=== PATIENT | female | born 1935 | race Caucasian/White ===

== ENCOUNTER 2023-05-09 17:05 | Emergency (ER) | payer BC, MEDICAID ==
[~2023-05-09] VITALS: Ht 157.5 cm; Wt 81.6 kg
[2023-05-09] MEDS ORDERED: ACET325C7 PO (17:27)
[2023-05-09] MEDS ORDERED: TELM40TA2 PO (17:27)
[2023-05-09] MEDS ORDERED: SIMV-46 PO (17:27)
[2023-05-09] MEDS: IV NORMAL SALINE 1000 ML BAG IV ONE (17:30)
[2023-05-09 18:00] LABS: BASOPHILS # (AUTO) 0.1 K/UL (0.0-0.2); BASOPHILS % (AUTO) 0.6 % (0.0-2.0); EOSINOPHILS # (AUTO) 0.1 K/uL (0.0-0.7); EOSINOPHILS % (AUTO) 0.7 % (0.0-7.0); HEMATOCRIT 39.4 % (31.2-41.9); LYMPHOCYTES # (AUTO) 1.3 K/uL (0.8-4.8); LYMPHOCYTES % (AUTO) 13.4 % (20.5-51.5); MEAN CORPUSCULAR HEMOGLOBIN 27.8 uug (24.7-32.8); MEAN CORPUSCULAR HGB CONC 33 g/dL (32.3-35.6); MEAN CORPUSCULAR VOLUME 84.1 fL (75.5-95.3); MONOCYTES # (AUTO) 0.6 K/uL (0.1-1.30); MONOCYTES % (AUTO) 6.3 % (0.0-11.0); NEUTROPHILS # (AUTO) 7.8 K/uL (1.8-8.9); PLATELET COUNT (AUTO) 254 K/uL (179-408); RED BLOOD CELL COUNT(AUTO) 4.69 MIL/uL (3.63-4.92); RED CELL DISTRIBUTION WIDTH 14.7 % (12.3-17.7); WHITE BLOOD COUNT (AUTO) 9.9 K/uL (3.8-11.8)
[2023-05-09 18:15] LABS: CALCIUM 9.3 mg/dL (8.5-10.1); CARBON DIOXIDE 24 mmol/L (21-32); CHLORIDE 106 mmol/L (98-107); CREATININE 0.8 mg/dL (0.6-1.3); GLUCOSE 134 mg/dL (74-106); POTASSIUM 3.9 mmol/L (3.5-5.1); SODIUM SERUM 141 mmol/L (136-145); UREA NITROGEN, BLOOD 13 mg/dL (7-18)
[2023-05-09 18:27] LABS: DIFFERENTIAL COMMENT 1
[2023-05-09 18:35] LABS: ALANINE AMINOTRANSFERASE 24 U/L (14-59); ALBUMIN 2.8 g/dL (3.4-5.0); ALKALINE PHOSPHATASE 48 U/L (50-136); ASPARTATE AMINOTRANSFERASE 25 U/L (15-37); BILIRUBIN,DIRECT 0.1 mg/dL (0.0-0.2); BILIRUBIN,TOTAL 0.3 mg/dL (0.2-1.0); NT-PRO BNP 429 pg/mL (0-125); TOTAL PROTEIN, SERUM 6.3 g/dL (6.4-8.2)
[2023-05-09] MEDS ORDERED: ONDANSETRON 4 MG/2 ML VIAL ONE ×2 (18:35→20:21)
[2023-05-09] MEDS: PANTOPRAZOLE SODIUM 40 MG VIAL IV SCH (19:12)
[2023-05-09 19:14] LABS: *BILIRUBIN,URIN NEGATIVE (NEGATIVE); *BLOOD, URINE 1+ (NEGATIVE); *CLARITY,URINE CLEAR (CLEAR); *COLOR,URINE YELLOW (YELLOW); *KETONES,URINE TRACE (NEGATIVE); *PROTEIN,URINE NEGATIVE (NEGATIVE); *UROBILINOGEN,URINE 0.2 E.U./dl (NORMAL); LEUKOCYTE ESTERASE ,URINE NEGATIVE (NEGATIVE); NITRITE, URINE NEGATIVE (NEGATIVE); PH,URINE 5.5 (5.0-8.0); UGLUCOSE NEGATIVE (NEGATIVE)
[2023-05-09] MEDS ORDERED: PANTOPRAZOLE SODIUM IV 40 MG in IV DEXTROSE 5% 100 ML IV ONE (19:15)
[2023-05-09 19:24] LABS: BACTERIA,URINE RARE /HPF (NONE SEEN); SQUAMOUS EPITHELIAL CELL,UR MODERATE /HPF (NONE SEEN)
[2023-05-09] MEDS: ONDANSETRON 4 MG/2 ML VIAL IV ONE (20:00)
[2023-05-09] MEDS ORDERED: PANTOPRAZOLE SODIUM 40 MG VIAL ONE (20:21)
[2023-05-09] MEDS ORDERED: ACETAMINOPHEN 325 MG TABLET PO PRN (21:30)
[2023-05-09] MEDS ORDERED: ONDANSETRON 4 MG/2 ML VIAL IV PRN (21:30)
[2023-05-09] MEDS ORDERED: IV NS 1000 ML 1,000 ML IV PRN (21:30)
[2023-05-09] MEDS ORDERED: ONDA4TAB5 PO (23:38)
[2023-05-09 23:56] VITALS: BP 148/60; TEMP 98.2; O2SAT 98
[2023-05-10] MEDS ORDERED: ENOXAPARIN SODIUM 40 MG/0.4 ML DISP.SYRIN SQ SCH (09:00)
[2023-05-11] MEDS ORDERED: TELM20TA8 PO (15:10)
[2023-05-11] MEDS ORDERED: MULT-594 PO (15:10)
[2023-05-11] MEDS ORDERED: SIMV10TA98 PO (17:13)
== END 2023-05-09 23:57 | disposition left against medical advice (07) ==
LOC: ER 17:15
DX: R11.2 Nausea with vomiting, unspecified (principal); R19.00 Intra-abdominal and pelvic swelling, mass and lump, unspecified site; Z79.899 Other long term (current) drug therapy
CPT/HCPCS: 99285; 96374; 96361; J2405; J7040; 36415; 71045; 83605; 83690; 84484; 85025; 85730; 93005; A4606; A4663; C9113

== ENCOUNTER 2023-07-25 17:29 | Inpatient (IN) | payer MEDICARE, OTHER ==
[~2023-07-25] VITALS: Ht 157.5 cm; Wt 77.6 kg
[~2023-07-25 17:29] MED LIST: ACET325C7 PO; MULT-594 PO; ONDA4TAB5 PO; SIMV10TA98 PO; TELM20TA8 PO
[2023-07-25] MEDS ORDERED: CYAN100T44 PO (18:07)
[2023-07-25 19:21] LABS: CALCIUM 8.8 mg/dL (8.5-10.1); CARBON DIOXIDE 19 mmol/L (21-32); CHLORIDE 92 mmol/L (98-107); CREATININE 0.8 mg/dL (0.6-1.3); GLUCOSE 109 mg/dL (74-106); POTASSIUM 4.5 mmol/L (3.5-5.1); SODIUM SERUM 122 mmol/L (136-145); UREA NITROGEN, BLOOD 24 mg/dL (7-18)
[2023-07-25 19:26] LABS: ALANINE AMINOTRANSFERASE 24 U/L (14-59); ALBUMIN 2.1 g/dL (3.4-5.0); ALKALINE PHOSPHATASE 70 U/L (50-136); ASPARTATE AMINOTRANSFERASE 25 U/L (15-37); BILIRUBIN,DIRECT 0.2 mg/dL (0.0-0.2); BILIRUBIN,TOTAL 0.5 mg/dL (0.2-1.0); NT-PRO BNP 825 pg/mL (0-125); TOTAL PROTEIN, SERUM 5.4 g/dL (6.4-8.2)
[2023-07-25 19:31] LABS: BASOPHILS % (AUTO) 0.3 % (0.0-2.0); DIFFERENTIAL COMMENT 0; EOSINOPHILS % (AUTO) 0.2 % (0.0-7.0); HEMATOCRIT 42.7 % (31.2-41.9); HEMOGLOBIN 13.9 g/dL (10.9-14.3); LYMPHOCYTES # (AUTO) 1.8 K/uL (0.8-4.8); MEAN CORPUSCULAR HEMOGLOBIN 26.6 uug (24.7-32.8); MEAN CORPUSCULAR HGB CONC 33 g/dL (32.3-35.6); MEAN CORPUSCULAR VOLUME 81.8 fL (75.5-95.3); MONOCYTES % (AUTO) 6.8 % (0.0-11.0); NEUTROPHILS # (AUTO) 12.2 K/uL (1.8-8.9); NEUTROPHILS % (AUTO) 80.7 % (38.5-71.5); PLATELET COUNT (AUTO) 361 K/uL (179-408); RED BLOOD CELL COUNT(AUTO) 5.21 MIL/uL (3.63-4.92); RED CELL DISTRIBUTION WIDTH 16.2 % (12.3-17.7)
[2023-07-25 19:48] LABS: MAGNESIUM 1.9 mg/dL (1.8-2.4); PHOSPHOROUS 2.5 mg/dL (2.5-4.9)
[2023-07-25] MEDS ORDERED: levoFLOXacin 750MG/D5W 150 ML IV ONE (20:19)
[2023-07-25] MEDS: levoFLOXacin 750 MG/D5W 150 ML PIGGYBACK IV ONE (20:26)
[2023-07-25] MEDS ORDERED: ENOXAPARIN SODIUM 80 MG/0.8 ML DISP.SYRIN SQ ONE (21:00)
[2023-07-25] MEDS: ENOXAPARIN SODIUM 80 MG/0.8 ML DISP.SYRIN SQ ONE (21:01)
[2023-07-25] MEDS ORDERED: ACETAMINOPHEN 325 MG TABLET PO PRN (21:30)
[2023-07-25] MEDS ORDERED: MAGNESIUM HYDROXIDE 30 ML LIQUID UDC PO PRN (21:30)
[2023-07-25 22:05] VITALS: BP 97/64; TEMP 99.1; O2SAT 96
[2023-07-25] MEDS: FUROSEMIDE 20 MG/2 ML VIAL IV ONE (22:27)
[2023-07-25] MEDS ORDERED: PIPERACILLIN/TAZOBACTAM/D5W 50 ML IV ONE ×2 (22:30)
[2023-07-25] MEDS: PIPERACILLIN SODIUM/TAZOBACTAM 3.375 G in IV DEXTROSE 5% 50 ML IV SCH (23:03)
[2023-07-26 00:48] LABS: *BILIRUBIN,URIN NEGATIVE (NEGATIVE); *BLOOD, URINE NEGATIVE (NEGATIVE); *COLOR,URINE YELLOW (YELLOW); *KETONES,URINE NEGATIVE (NEGATIVE); *PROTEIN,URINE NEGATIVE (NEGATIVE); *UROBILINOGEN,URINE 0.2 E.U./dl (NORMAL); LEUKOCYTE ESTERASE ,URINE TRACE (NEGATIVE); NITRITE, URINE NEGATIVE (NEGATIVE); PH,URINE 5.5 (5.0-8.0); UGLUCOSE NEGATIVE (NEGATIVE)
[2023-07-26 00:53] LABS: *CLARITY,URINE HAZY (CLEAR)
[2023-07-26 01:01] LABS: BACTERIA,URINE FEW /HPF (NONE SEEN); RBC,URINE 0-3 /HPF (0-3)
[2023-07-26 01:02] LABS: SQUAMOUS EPITHELIAL CELL,UR FEW /HPF (NONE SEEN)
[2023-07-26 04:10] VITALS: BP 104/66; TEMP 97.3; O2SAT 97
[2023-07-26 07:41] LABS: CALCIUM 8.5 mg/dL (8.5-10.1); CREATININE 0.8 mg/dL (0.6-1.3); MAGNESIUM 1.8 mg/dL (1.8-2.4); PHOSPHOROUS 2.6 mg/dL (2.5-4.9); POTASSIUM 4.7 mmol/L (3.5-5.1)
[2023-07-26 09:12] LABS: BASOPHILS % (AUTO) 0.2 % (0.0-2.0); DIFFERENTIAL COMMENT 0; EOSINOPHILS # (AUTO) 0.1 K/uL (0.0-0.7); EOSINOPHILS % (AUTO) 0.5 % (0.0-7.0); HEMATOCRIT 41.2 % (31.2-41.9); HEMOGLOBIN 13.5 g/dL (10.9-14.3); LYMPHOCYTES # (AUTO) 2.3 K/uL (0.8-4.8); MEAN CORPUSCULAR HGB CONC 33 g/dL (32.3-35.6); MEAN CORPUSCULAR VOLUME 82.3 fL (75.5-95.3); MONOCYTES % (AUTO) 7.4 % (0.0-11.0); NEUTROPHILS # (AUTO) 10.3 K/uL (1.8-8.9); NEUTROPHILS % (AUTO) 74.9 % (38.5-71.5); PLATELET COUNT (AUTO) 333 K/uL (179-408); RED BLOOD CELL COUNT(AUTO) 5.01 MIL/uL (3.63-4.92); RED CELL DISTRIBUTION WIDTH 15.6 % (12.3-17.7); WHITE BLOOD COUNT (AUTO) 13.7 K/uL (3.8-11.8)
[2023-07-26] MEDS: FUROSEMIDE 20 MG/2 ML VIAL IV SCH (10:57)
[2023-07-26 12:00] VITALS: BP 91/61; TEMP 97.8; O2SAT 95
[2023-07-26 12:39] LABS: MAGNESIUM 1.8 mg/dL (1.8-2.4); PHOSPHOROUS 2.7 mg/dL (2.5-4.9); URIC ACID 7.1 mg/dL (2.6-6.0)
[2023-07-26 12:56] LABS: THYROID STIMULATING HORMONE 2.247 mIU/mL (0.358-3.740)
[2023-07-26] MEDS: PIPERACILLIN SODIUM/TAZOBACTAM 3.375 G in IV DEXTROSE 5% 100 ML IV SCH (14:52)
[2023-07-26 15:30] LABS: CALCIUM 8.3 mg/dL (8.5-10.1); CARBON DIOXIDE 27 mmol/L (21-32); CHLORIDE 96 mmol/L (98-107); CREATININE 0.8 mg/dL (0.6-1.3); GLUCOSE 96 mg/dL (74-106); SODIUM SERUM 130 mmol/L (136-145); UREA NITROGEN, BLOOD 20 mg/dL (7-18)
[2023-07-26 15:30] LABS: *BILIRUBIN,URIN NEGATIVE (NEGATIVE); *BLOOD, URINE NEGATIVE (NEGATIVE); *CLARITY,URINE CLEAR (CLEAR); *COLOR,URINE YELLOW (YELLOW); *KETONES,URINE NEGATIVE (NEGATIVE); *PROTEIN,URINE NEGATIVE (NEGATIVE); *UROBILINOGEN,URINE 0.2 E.U./dl (NORMAL); LEUKOCYTE ESTERASE ,URINE NEGATIVE (NEGATIVE); NITRITE, URINE NEGATIVE (NEGATIVE); UGLUCOSE NEGATIVE (NEGATIVE)
[2023-07-26 15:42] LABS: *SODIUM RNDM,URINE 38 mmol/L (40-220)
[2023-07-26 16:30] VITALS: BP 81/50; TEMP 98.6; O2SAT 92
[2023-07-26] MEDS: CLOTRIMAZOLE 1% CREAM 30 GM TUBE TOP SCH (17:18)
[2023-07-26] MEDS: MEDIHONEY= THERAHONEY 1.5 OZ TUBE TOP SCH (17:19)
[2023-07-26 20:21] VITALS: BP 82/51; TEMP 97.2; O2SAT 93
[2023-07-27 00:30] VITALS: BP 136/76; TEMP 98.2; O2SAT 99
[2023-07-27] MEDS: ONDANSETRON 4 MG/2 ML VIAL IV PRN (06:57)
[2023-07-27 07:18] LABS: BASOPHILS % (AUTO) 0.1 % (0.0-2.0); EOSINOPHILS # (AUTO) 0.1 K/uL (0.0-0.7); EOSINOPHILS % (AUTO) 0.8 % (0.0-7.0); HEMATOCRIT 40.2 % (31.2-41.9); HEMOGLOBIN 13.3 g/dL (10.9-14.3); LYMPHOCYTES % (AUTO) 17.3 % (20.5-51.5); MEAN CORPUSCULAR HEMOGLOBIN 27.2 uug (24.7-32.8); MEAN CORPUSCULAR HGB CONC 33 g/dL (32.3-35.6); MEAN CORPUSCULAR VOLUME 82.2 fL (75.5-95.3); MONOCYTES # (AUTO) 0.9 K/uL (0.1-1.30); MONOCYTES % (AUTO) 8.1 % (0.0-11.0); NEUTROPHILS # (AUTO) 8.5 K/uL (1.8-8.9); NEUTROPHILS % (AUTO) 73.7 % (38.5-71.5); PLATELET COUNT (AUTO) 305 K/uL (179-408); RED BLOOD CELL COUNT(AUTO) 4.88 MIL/uL (3.63-4.92); RED CELL DISTRIBUTION WIDTH 16.2 % (12.3-17.7); WHITE BLOOD COUNT (AUTO) 11.5 K/uL (3.8-11.8)
[2023-07-27 07:23] LABS: DIFFERENTIAL COMMENT 1
[2023-07-27 07:37] LABS: CALCIUM 8.2 mg/dL (8.5-10.1); CREATININE 0.8 mg/dL (0.6-1.3); POTASSIUM 4.2 mmol/L (3.5-5.1)
[2023-07-27 08:00] VITALS: BP 90/53; TEMP 97.7; O2SAT 93
[2023-07-27 08:06] LABS: CARCINOEMBRYONIC AG (CEA) 2.8 ng/mL (0.0-4.7)
[2023-07-27] MEDS: REMEDY ESSENTIAL ZINC PASTE 113 GM TP PRN (09:02)
[2023-07-27 12:00] VITALS: BP 91/64; TEMP 97.7; O2SAT 95
[2023-07-27] MEDS ORDERED: FURO-152 PO (12:57)
[2023-07-27 16:34] VITALS: BP 91/61; TEMP 98.8; O2SAT 92
== END 2023-07-27 18:10 | disposition home health service (06) | DRG 754 ==
LOC: ER 17:35 → TELE3 21:46
PROVIDERS: ADMIT Internal Medicine; ATTEND Internal Medicine
PROC: 0W9B3ZZ Drainage of Left Pleural Cavity, Percutaneous Approach (ICD-10-PCS; principal; 2023-07-26)
DX: C79.63 Secondary malignant neoplasm of bilateral ovaries (principal); E43 Unspecified severe protein-calorie malnutrition; C79.89 Secondary malignant neoplasm of other specified sites; J91.0 Malignant pleural effusion; C18.9 Malignant neoplasm of colon, unspecified; C77.2 Secondary and unspecified malignant neoplasm of intra-abdominal lymph nodes; R18.8 Other ascites; R65.10 Systemic inflammatory response syndrome (SIRS) of non-infectious origin without acute organ dysfunction; E87.1 Hypo-osmolality and hyponatremia; J91.8 Pleural effusion in other conditions classified elsewhere; C78.6 Secondary malignant neoplasm of retroperitoneum and peritoneum; E87.70 Fluid overload, unspecified; E87.79 Other fluid overload; Z85.038 Personal history of other malignant neoplasm of large intestine; E88.09 Other disorders of plasma-protein metabolism, not elsewhere classified; E04.2 Nontoxic multinodular goiter; I11.9 Hypertensive heart disease without heart failure; Z92.21 Personal history of antineoplastic chemotherapy; Z85.43 Personal history of malignant neoplasm of ovary; F34.1 Dysthymic disorder; K29.70 Gastritis, unspecified, without bleeding; E78.5 Hyperlipidemia, unspecified
CPT/HCPCS: 32555; 36415; 71045; 82378; 82533; 83605; 83735; 84100; 84300; 84443; 84484; 84550; 85025; 85730; 87040; 93005; 93307; A4606; A4663; A6213; G0378; J1650; J1940; J1956; J2405; J2543

== ENCOUNTER 2023-08-09 15:38 | Inpatient (IN) | payer MEDICARE, OTHER ==
[~2023-08-09] VITALS: Ht 157.5 cm; Wt 69.9 kg
[~2023-08-09 15:38] MED LIST changes: +CYAN100T44 PO; +FURO-152 PO; -TELM20TA8 PO
[2023-08-09 17:47] LABS: BASOPHILS % (AUTO) 0.3 % (0.0-2.0); EOSINOPHILS # (AUTO) 0.1 K/uL (0.0-0.7); EOSINOPHILS % (AUTO) 0.7 % (0.0-7.0); LYMPHOCYTES # (AUTO) 1.8 K/uL (0.8-4.8); LYMPHOCYTES % (AUTO) 19.4 % (20.5-51.5); MEAN CORPUSCULAR HEMOGLOBIN 27.9 uug (24.7-32.8); MEAN CORPUSCULAR HGB CONC 33 g/dL (32.3-35.6); MEAN CORPUSCULAR VOLUME 83.7 fL (75.5-95.3); MONOCYTES # (AUTO) 0.8 K/uL (0.1-1.30); MONOCYTES % (AUTO) 8.5 % (0.0-11.0); NEUTROPHILS # (AUTO) 6.8 K/uL (1.8-8.9); NEUTROPHILS % (AUTO) 71.1 % (38.5-71.5); PLATELET COUNT (AUTO) 376 K/uL (179-408); RED BLOOD CELL COUNT(AUTO) 4.65 MIL/uL (3.63-4.92); RED CELL DISTRIBUTION WIDTH 16.3 % (12.3-17.7); WHITE BLOOD COUNT (AUTO) 9.5 K/uL (3.8-11.8)
[2023-08-09 17:52] LABS: DIFFERENTIAL COMMENT 1
[2023-08-09 17:55] LABS: CARBON DIOXIDE 28 mmol/L (21-32); CHLORIDE 100 mmol/L (98-107); CREATININE 0.8 mg/dL (0.6-1.3); GLUCOSE 74 mg/dL (74-106); POTASSIUM 4.9 mmol/L (3.5-5.1); SODIUM SERUM 134 mmol/L (136-145); UREA NITROGEN, BLOOD 15 mg/dL (7-18)
[2023-08-09 18:09] LABS: ALANINE AMINOTRANSFERASE 22 U/L (14-59); ALBUMIN 1.9 g/dL (3.4-5.0); ALKALINE PHOSPHATASE 82 U/L (50-136); ASPARTATE AMINOTRANSFERASE 13 U/L (15-37); BILIRUBIN,DIRECT 0.2 mg/dL (0.0-0.2); BILIRUBIN,TOTAL 0.5 mg/dL (0.2-1.0); CALCIUM 9.3 mg/dL (8.5-10.1); NT-PRO BNP 1678 pg/mL (0-125); TOTAL PROTEIN, SERUM 5.2 g/dL (6.4-8.2)
[2023-08-09 19:52] LABS: *BILIRUBIN,URIN NEGATIVE (NEGATIVE); *BLOOD, URINE 1+ (NEGATIVE); *CLARITY,URINE CLEAR (CLEAR); *COLOR,URINE YELLOW (YELLOW); *KETONES,URINE TRACE (NEGATIVE); *PROTEIN,URINE NEGATIVE (NEGATIVE); *UROBILINOGEN,URINE 0.2 E.U./dl (NORMAL); LEUKOCYTE ESTERASE ,URINE TRACE (NEGATIVE); NITRITE, URINE NEGATIVE (NEGATIVE); PH,URINE 5.5 (5.0-8.0); UGLUCOSE NEGATIVE (NEGATIVE)
[2023-08-09 20:08] LABS: BACTERIA,URINE FEW /HPF (NONE SEEN); SQUAMOUS EPITHELIAL CELL,UR FEW /HPF (NONE SEEN)
[2023-08-09] MEDS ORDERED: ACETAMINOPHEN 325 MG TABLET PO PRN (21:30)
[2023-08-09] MEDS ORDERED: MAGNESIUM HYDROXIDE 30 ML LIQUID UDC PO PRN (21:30)
[2023-08-09 23:46] VITALS: BP 98/68; TEMP 98.1; O2SAT 94
[2023-08-10 04:00] VITALS: BP 105/72; TEMP 98; O2SAT 95
[2023-08-10 06:26] LABS: BASOPHILS % (AUTO) 0.2 % (0.0-2.0); EOSINOPHILS # (AUTO) 0.2 K/uL (0.0-0.7); EOSINOPHILS % (AUTO) 1.6 % (0.0-7.0); HEMATOCRIT 38.4 % (31.2-41.9); HEMOGLOBIN 12.8 g/dL (10.9-14.3); LYMPHOCYTES # (AUTO) 2.2 K/uL (0.8-4.8); LYMPHOCYTES % (AUTO) 23.7 % (20.5-51.5); MEAN CORPUSCULAR HEMOGLOBIN 27.7 uug (24.7-32.8); MEAN CORPUSCULAR HGB CONC 33 g/dL (32.3-35.6); MEAN CORPUSCULAR VOLUME 83.2 fL (75.5-95.3); MONOCYTES # (AUTO) 0.9 K/uL (0.1-1.30); MONOCYTES % (AUTO) 9.3 % (0.0-11.0); NEUTROPHILS # (AUTO) 6.2 K/uL (1.8-8.9); NEUTROPHILS % (AUTO) 65.2 % (38.5-71.5); PLATELET COUNT (AUTO) 367 K/uL (179-408); RED BLOOD CELL COUNT(AUTO) 4.62 MIL/uL (3.63-4.92); RED CELL DISTRIBUTION WIDTH 16.6 % (12.3-17.7); WHITE BLOOD COUNT (AUTO) 9.5 K/uL (3.8-11.8)
[2023-08-10 06:48] LABS: CALCIUM 8.9 mg/dL (8.5-10.1); CARBON DIOXIDE 29 mmol/L (21-32); CHLORIDE 100 mmol/L (98-107); CHOLESTEROL 121 mg/dL (<200); CREATININE 0.6 mg/dL (0.6-1.3); GLUCOSE 56 mg/dL (74-106); HDL CHOLESTEROL 58 mg/dL (40-60); MAGNESIUM 1.8 mg/dL (1.8-2.4); PHOSPHOROUS 3.1 mg/dL (2.5-4.9); POTASSIUM 4.3 mmol/L (3.5-5.1); SODIUM SERUM 134 mmol/L (136-145); TRIGLYCERIDES 82 MG/DL (30-150); UREA NITROGEN, BLOOD 14 mg/dL (7-18)
[2023-08-10 06:59] LABS: DIFFERENTIAL COMMENT 1
[2023-08-10 08:04] VITALS: BP 102/68; TEMP 97.6; O2SAT 95
[2023-08-10 11:56] VITALS: BP 97/66; TEMP 98.2; O2SAT 94
[2023-08-10] MEDS: FUROSEMIDE 40 MG/4 ML VIAL IV SCH (12:36)
[2023-08-10] MEDS: MULTIVITAMINS,THERAPEUTIC TABLET PO SCH (12:36)
[2023-08-10] MEDS: ENOXAPARIN SODIUM 40 MG/0.4 ML DISP.SYRIN SQ SCH (12:37)
[2023-08-10 16:43] VITALS: BP 94/65; TEMP 98.2; O2SAT 95
[2023-08-10 20:00] VITALS: BP 96/64; TEMP 97.5; O2SAT 95
[2023-08-10] MEDS: SIMVASTATIN 10 MG TABLET PO SCH (20:51)
[2023-08-11] VITALS (7 sets, daily range): BP systolic 90–111; BP diastolic 41–73; TEMP 97.5–98.1; O2SAT 92–100
[2023-08-11 06:56] LABS: BASOPHILS % (AUTO) 0.3 % (0.0-2.0); EOSINOPHILS # (AUTO) 0.2 K/uL (0.0-0.7); EOSINOPHILS % (AUTO) 1.7 % (0.0-7.0); HEMATOCRIT 37.8 % (31.2-41.9); HEMOGLOBIN 12.4 g/dL (10.9-14.3); LYMPHOCYTES # (AUTO) 2.5 K/uL (0.8-4.8); LYMPHOCYTES % (AUTO) 23.9 % (20.5-51.5); MEAN CORPUSCULAR HEMOGLOBIN 27.2 uug (24.7-32.8); MEAN CORPUSCULAR HGB CONC 33 g/dL (32.3-35.6); MEAN CORPUSCULAR VOLUME 82.8 fL (75.5-95.3); MONOCYTES # (AUTO) 0.9 K/uL (0.1-1.30); MONOCYTES % (AUTO) 8.7 % (0.0-11.0); NEUTROPHILS % (AUTO) 65.4 % (38.5-71.5); PLATELET COUNT (AUTO) 408 K/uL (179-408); RED BLOOD CELL COUNT(AUTO) 4.57 MIL/uL (3.63-4.92); RED CELL DISTRIBUTION WIDTH 16.4 % (12.3-17.7); WHITE BLOOD COUNT (AUTO) 10.6 K/uL (3.8-11.8)
[2023-08-11 07:23] LABS: DIFFERENTIAL COMMENT 1
[2023-08-11 07:26] LABS: CALCIUM 8.7 mg/dL (8.5-10.1); CARBON DIOXIDE 29 mmol/L (21-32); CHLORIDE 102 mmol/L (98-107); CREATININE 0.7 mg/dL (0.6-1.3); GLUCOSE 78 mg/dL (74-106); MAGNESIUM 1.7 mg/dL (1.8-2.4); POTASSIUM 3.8 mmol/L (3.5-5.1); SODIUM SERUM 136 mmol/L (136-145); UREA NITROGEN, BLOOD 12 mg/dL (7-18)
[2023-08-11] MEDS: METOPROLOL TARTRATE 25 MG TABLET PO SCH (11:15)
[2023-08-11] MEDS: MAGNESIUM OXIDE 400 MG TABLET PO ONE (11:42)
[2023-08-12 04:00] VITALS: BP 94/63; TEMP 97.6; O2SAT 92
[2023-08-12 07:20] LABS: CALCIUM 8.5 mg/dL (8.5-10.1); CARBON DIOXIDE 32 mmol/L (21-32); CHLORIDE 101 mmol/L (98-107); CREATININE 0.6 mg/dL (0.6-1.3); GLUCOSE 75 mg/dL (74-106); MAGNESIUM 1.7 mg/dL (1.8-2.4); POTASSIUM 3.5 mmol/L (3.5-5.1); SODIUM SERUM 136 mmol/L (136-145); UREA NITROGEN, BLOOD 10 mg/dL (7-18)
[2023-08-12 08:00] VITALS: BP 103/66; TEMP 97.6; O2SAT 95
[2023-08-12] MEDS ORDERED: POTASSIUM CHLORIDE 20 MEQ POWDER PACKET GT ONE (08:15)
[2023-08-12] MEDS: MAGNESIUM SULFATE/D5W 100 ML IV SCH (09:18)
[2023-08-12] MEDS: FUROSEMIDE 20 MG TABLET PO SCH (09:19)
[2023-08-12] MEDS: SPIRONOLACTONE 25 MG TABLET PO SCH (09:19)
[2023-08-12] MEDS: CYANOCOBALAMIN 100 MCG TABLET PO SCH (09:19)
[2023-08-12] MEDS: POTASSIUM CHLORIDE 20 MEQ TAB.PRT.SR PO ONE (09:19)
[2023-08-12 11:42] VITALS: BP 101/69; TEMP 97.8; O2SAT 95
[2023-08-12 16:00] VITALS: BP 102/66; TEMP 97.6; O2SAT 95
[2023-08-12] MEDS: ARGININE/GLUTAMINE/CALCIUM BMB 1 EACH POWD.PACK PO SCH (17:38)
[2023-08-12] MEDS: MEDIHONEY= THERAHONEY 1.5 OZ TUBE TOP SCH (17:38)
[2023-08-12] MEDS: PROTEIN SUPPLEMENT (PROSTAT) 30 ML LIQUID PO SCH (17:39)
[2023-08-12 19:45] VITALS: BP 110/73; TEMP 97.4; O2SAT 94
[2023-08-12] MEDS: REMEDY ESSENTIAL ZINC PASTE 113 GM TOP SCH (20:44)
[2023-08-13 06:03] VITALS: BP 102/70; TEMP 97.5; O2SAT 94
[2023-08-13 08:20] VITALS: BP 108/72; TEMP 97.5; O2SAT 97
[2023-08-13] MEDS: ONDANSETRON 4 MG/2 ML VIAL IV PRN (08:38)
[2023-08-13 11:42] VITALS: BP 106/66; TEMP 97.5; O2SAT 94
[2023-08-13 13:43] LABS: PROTEIN, BODY FLUID 2.7 G/DL
[2023-08-13 13:51] LABS: TOTAL VOLUME,BODY FLUID 1300 mL; WBC, BODY FLUID 1838 /cu. mm (0-200/cu.mm)
[2023-08-13 14:31] LABS: POLYNUCLEAR, BODY FLUID 2 % (0-25 %)
[2023-08-13 14:32] LABS: MONOCYTES,BODY FLUID 6 %
[2023-08-13 14:56] VITALS: BP 96/66; TEMP 97.9; O2SAT 92
[2023-08-13 20:00] VITALS: BP 100/66; TEMP 97.7; O2SAT 91
[2023-08-13 22:07] VITALS: BP 100/66; TEMP 97.7; O2SAT 91
[2023-08-14 06:12] VITALS: BP 93/60; TEMP 97.9; O2SAT 92
[2023-08-14 06:52] LABS: BASOPHILS % (AUTO) 0.3 % (0.0-2.0); EOSINOPHILS # (AUTO) 0.2 K/uL (0.0-0.7); EOSINOPHILS % (AUTO) 1.4 % (0.0-7.0); HEMATOCRIT 42.6 % (31.2-41.9); HEMOGLOBIN 13.6 g/dL (10.9-14.3); LYMPHOCYTES # (AUTO) 2.9 K/uL (0.8-4.8); LYMPHOCYTES % (AUTO) 21.4 % (20.5-51.5); MEAN CORPUSCULAR HEMOGLOBIN 26.7 uug (24.7-32.8); MEAN CORPUSCULAR HGB CONC 32 g/dL (32.3-35.6); MEAN CORPUSCULAR VOLUME 83.6 fL (75.5-95.3); MONOCYTES % (AUTO) 7.7 % (0.0-11.0); NEUTROPHILS # (AUTO) 9.3 K/uL (1.8-8.9); NEUTROPHILS % (AUTO) 69.2 % (38.5-71.5); PLATELET COUNT (AUTO) 395 K/uL (179-408); RED BLOOD CELL COUNT(AUTO) 5.09 MIL/uL (3.63-4.92); RED CELL DISTRIBUTION WIDTH 16.9 % (12.3-17.7); WHITE BLOOD COUNT (AUTO) 13.4 K/uL (3.8-11.8)
[2023-08-14 07:06] LABS: CALCIUM 8.3 mg/dL (8.5-10.1); CREATININE 0.6 mg/dL (0.6-1.3); POTASSIUM 4.4 mmol/L (3.5-5.1)
[2023-08-14 07:14] LABS: ALBUMIN 1.7 g/dL (3.4-5.0); BILIRUBIN,DIRECT 0.2 mg/dL (0.0-0.2); BILIRUBIN,TOTAL 0.4 mg/dL (0.2-1.0); TOTAL PROTEIN, SERUM 4.7 g/dL (6.4-8.2)
[2023-08-14 07:17] LABS: DIFFERENTIAL COMMENT 1
[2023-08-14] MEDS ORDERED: SPIR25TA PO (10:58)
[2023-08-14] MEDS ORDERED: NUTR1PAC14 PO (10:58)
[2023-08-14] MEDS ORDERED: ACET325T53 PO (10:58)
[2023-08-14] MEDS ORDERED: METO25TA6 PO (10:58)
[2023-08-14] MEDS ORDERED: FURO20TA4 PO (10:58)
[2023-08-14] MEDS ORDERED: PROT30LI PO (10:58)
[2023-08-14 11:28] VITALS: BP 96/68; TEMP 97.8; O2SAT 93
[2023-08-14 11:29] VITALS: BP 100/68
== END 2023-08-14 14:30 | disposition home health service (06) | DRG 754 ==
LOC: ER 15:39 → TELE3 22:42 → CSC3 08-12 10:06 → MEDSURG3 08-12 10:10
PROVIDERS: ADMIT Nurse Practitioner Acute Care; ATTEND Nurse Practitioner Acute Care
PROC: 0W993ZZ Drainage of Right Pleural Cavity, Percutaneous Approach (ICD-10-PCS; principal; 2023-08-13)
DX: C56.3 Malignant neoplasm of bilateral ovaries (principal); E43 Unspecified severe protein-calorie malnutrition; J96.01 Acute respiratory failure with hypoxia; C18.9 Malignant neoplasm of colon, unspecified; C78.6 Secondary malignant neoplasm of retroperitoneum and peritoneum; E87.1 Hypo-osmolality and hyponatremia; J91.0 Malignant pleural effusion; R18.8 Other ascites; C77.2 Secondary and unspecified malignant neoplasm of intra-abdominal lymph nodes; E78.5 Hyperlipidemia, unspecified; E87.70 Fluid overload, unspecified; Z92.21 Personal history of antineoplastic chemotherapy; E88.09 Other disorders of plasma-protein metabolism, not elsewhere classified; Z68.28 Body mass index [BMI] 28.0-28.9, adult; I87.2 Venous insufficiency (chronic) (peripheral); I11.9 Hypertensive heart disease without heart failure; S31.000A Unspecified open wound of lower back and pelvis without penetration into retroperitoneum, initial encounter; X58.XXXA Exposure to other specified factors, initial encounter; Y93.9 Activity, unspecified; Y92.009 Unspecified place in unspecified non-institutional (private) residence as the place of occurrence of the external cause; Z90.49 Acquired absence of other specified parts of digestive tract; E04.2 Nontoxic multinodular goiter
CPT/HCPCS: 32555; 36415; 71045; 71250; 76705; 83605; 83615; 83735; 83986; 84100; 84155; 84484; 85025; 85610; 85730; 87040; 93005; A4663; A6213; G0378; J1650; J1940; J2405; J3475; J3490

== ENCOUNTER 2023-08-23 15:12 | Inpatient (IN) | payer MEDICARE, OTHER ==
[~2023-08-23] VITALS: Ht 157.5 cm; Wt 73.2 kg
[~2023-08-23 15:12] MED LIST changes: +ACET325T53 PO; +FURO20TA4 PO; +METO25TA6 PO; +NUTR1PAC14 PO; +PROT30LI PO; +SPIR25TA PO
[2023-08-23 17:47] LABS: BASOPHILS % (AUTO) 0.2 % (0.0-2.0); EOSINOPHILS % (AUTO) 0.1 % (0.0-7.0); HEMOGLOBIN 14.2 g/dL (10.9-14.3); LYMPHOCYTES # (AUTO) 1.9 K/uL (0.8-4.8); MEAN CORPUSCULAR HEMOGLOBIN 26.7 uug (24.7-32.8); MEAN CORPUSCULAR HGB CONC 32 g/dL (32.3-35.6); MEAN CORPUSCULAR VOLUME 84.2 fL (75.5-95.3); MONOCYTES # (AUTO) 0.9 K/uL (0.1-1.30); MONOCYTES % (AUTO) 5.5 % (0.0-11.0); NEUTROPHILS # (AUTO) 12.8 K/uL (1.8-8.9); NEUTROPHILS % (AUTO) 82.2 % (38.5-71.5); PLATELET COUNT (AUTO) 334 K/uL (179-408); RED BLOOD CELL COUNT(AUTO) 5.34 MIL/uL (3.63-4.92); RED CELL DISTRIBUTION WIDTH 17.8 % (12.3-17.7); WHITE BLOOD COUNT (AUTO) 15.5 K/uL (3.8-11.8)
[2023-08-23 17:50] LABS: DIFFERENTIAL COMMENT 1
[2023-08-23 17:54] LABS: CALCIUM 8.5 mg/dL (8.5-10.1); CARBON DIOXIDE 25 mmol/L (21-32); CHLORIDE 98 mmol/L (98-107); CREATININE 0.7 mg/dL (0.6-1.3); GLUCOSE 91 mg/dL (74-106); POTASSIUM 4.8 mmol/L (3.5-5.1); SODIUM SERUM 130 mmol/L (136-145); UREA NITROGEN, BLOOD 32 mg/dL (7-18)
[2023-08-23 18:07] LABS: ALANINE AMINOTRANSFERASE 26 U/L (14-59); ALBUMIN 1.8 g/dL (3.4-5.0); ALKALINE PHOSPHATASE 210 U/L (50-136); ASPARTATE AMINOTRANSFERASE 40 U/L (15-37); BILIRUBIN,DIRECT 0.1 mg/dL (0.0-0.2); BILIRUBIN,TOTAL 0.8 mg/dL (0.2-1.0); NT-PRO BNP 3614 pg/mL (0-125); TOTAL PROTEIN, SERUM 5.2 g/dL (6.4-8.2)
[2023-08-23] MEDS ORDERED: HEPARIN/D5W DRIP 500 ML ONE (19:45)
[2023-08-23] MEDS: HEPARIN SODIUM,PORCINE/PF 500 UNIT/5 ML SYR IV ONE (20:00)
[2023-08-23] MEDS ORDERED: HEPARIN SODIUM,PORCINE 5,000 UNITS/ML VIAL ONE (20:01)
[2023-08-23] MEDS: HEPARIN/D5W DRIP 500 ML IV PRN (20:01)
[2023-08-23] MEDS ORDERED: ACETAMINOPHEN 325 MG TABLET-SA PATIENTS-PAIN ONLY PO PRN (23:45)
[2023-08-23] MEDS ORDERED: REMEDY ESSENTIAL ZINC PASTE 113 GM TP PRN (23:45)
[2023-08-23] MEDS ORDERED: ACETAMINOPHEN 325 MG TABLET PO PRN (23:45)
[2023-08-23] MEDS ORDERED: MAGNESIUM HYDROXIDE 30 ML LIQUID UDC PO PRN (23:45)
[2023-08-24 02:15] VITALS: BP 107/77; TEMP 97.5; O2SAT 95
[2023-08-24 04:00] VITALS: BP 114/81; TEMP 97.9; O2SAT 92
[2023-08-24 06:42] LABS: BASOPHILS % (AUTO) 0.2 % (0.0-2.0); EOSINOPHILS # (AUTO) 0.2 K/uL (0.0-0.7); EOSINOPHILS % (AUTO) 0.9 % (0.0-7.0); HEMATOCRIT 44.3 % (31.2-41.9); HEMOGLOBIN 14.2 g/dL (10.9-14.3); LYMPHOCYTES # (AUTO) 3.8 K/uL (0.8-4.8); LYMPHOCYTES % (AUTO) 23.1 % (20.5-51.5); MEAN CORPUSCULAR HGB CONC 32 g/dL (32.3-35.6); MEAN CORPUSCULAR VOLUME 84.3 fL (75.5-95.3); MONOCYTES # (AUTO) 1.2 K/uL (0.1-1.30); MONOCYTES % (AUTO) 7.4 % (0.0-11.0); NEUTROPHILS # (AUTO) 11.2 K/uL (1.8-8.9); NEUTROPHILS % (AUTO) 68.4 % (38.5-71.5); PLATELET COUNT (AUTO) 286 K/uL (179-408); RED BLOOD CELL COUNT(AUTO) 5.26 MIL/uL (3.63-4.92); WHITE BLOOD COUNT (AUTO) 16.3 K/uL (3.8-11.8)
[2023-08-24 06:55] LABS: DIFFERENTIAL COMMENT 1
[2023-08-24 07:12] LABS: CALCIUM 8.4 mg/dL (8.5-10.1); CREATININE 0.7 mg/dL (0.6-1.3); MAGNESIUM 1.9 mg/dL (1.8-2.4); PHOSPHOROUS 2.9 mg/dL (2.5-4.9); POTASSIUM 3.6 mmol/L (3.5-5.1)
[2023-08-24] MEDS: METOPROLOL TARTRATE 25 MG TABLET PO SCH (09:24)
[2023-08-24] MEDS: PROTEIN SUPPLEMENT (PROSTAT) 30 ML LIQUID PO SCH (12:16)
[2023-08-24 16:00] VITALS: BP 102/73; TEMP 97.6; O2SAT 97
[2023-08-24] MEDS: ONDANSETRON 4 MG/2 ML VIAL IV PRN (18:23)
[2023-08-24 20:00] VITALS: TEMP 97.3
[2023-08-24] MEDS: ENOXAPARIN SODIUM 80 MG/0.8 ML DISP.SYRIN SQ SCH (21:41)
[2023-08-25] VITALS (7 sets, daily range): BP systolic 113–128; BP diastolic 75–84; TEMP 97.3–98.6; O2SAT 92–97
[2023-08-25 07:14] LABS: BASOPHILS % (AUTO) 0.3 % (0.0-2.0); EOSINOPHILS # (AUTO) 0.1 K/uL (0.0-0.7); EOSINOPHILS % (AUTO) 0.4 % (0.0-7.0); HEMOGLOBIN 14.9 g/dL (10.9-14.3); LYMPHOCYTES # (AUTO) 2.8 K/uL (0.8-4.8); LYMPHOCYTES % (AUTO) 20.9 % (20.5-51.5); MEAN CORPUSCULAR HEMOGLOBIN 27.2 uug (24.7-32.8); MEAN CORPUSCULAR HGB CONC 32 g/dL (32.3-35.6); MONOCYTES # (AUTO) 0.9 K/uL (0.1-1.30); MONOCYTES % (AUTO) 6.9 % (0.0-11.0); NEUTROPHILS # (AUTO) 9.7 K/uL (1.8-8.9); NEUTROPHILS % (AUTO) 71.5 % (38.5-71.5); PLATELET COUNT (AUTO) 296 K/uL (179-408); RED BLOOD CELL COUNT(AUTO) 5.47 MIL/uL (3.63-4.92); WHITE BLOOD COUNT (AUTO) 13.6 K/uL (3.8-11.8)
[2023-08-25 07:24] LABS: DIFFERENTIAL COMMENT 1
[2023-08-25 07:29] LABS: CALCIUM 8.6 mg/dL (8.5-10.1); CREATININE 0.7 mg/dL (0.6-1.3); POTASSIUM 3.8 mmol/L (3.5-5.1)
[2023-08-25] MEDS: CYANOCOBALAMIN 100 MCG TABLET PO SCH (10:06)
[2023-08-26] VITALS (7 sets, daily range): BP systolic 100–127; BP diastolic 59–85; TEMP 94.2–98; O2SAT 90–94
[2023-08-26 07:03] LABS: BASOPHILS % (AUTO) 0.4 % (0.0-2.0); EOSINOPHILS # (AUTO) 0.1 K/uL (0.0-0.7); EOSINOPHILS % (AUTO) 0.5 % (0.0-7.0); HEMATOCRIT 44.7 % (31.2-41.9); HEMOGLOBIN 14.4 g/dL (10.9-14.3); LYMPHOCYTES # (AUTO) 3.1 K/uL (0.8-4.8); LYMPHOCYTES % (AUTO) 25.1 % (20.5-51.5); MEAN CORPUSCULAR HEMOGLOBIN 27.1 uug (24.7-32.8); MEAN CORPUSCULAR HGB CONC 32 g/dL (32.3-35.6); MEAN CORPUSCULAR VOLUME 84.3 fL (75.5-95.3); MONOCYTES % (AUTO) 7.7 % (0.0-11.0); NEUTROPHILS # (AUTO) 8.3 K/uL (1.8-8.9); NEUTROPHILS % (AUTO) 66.3 % (38.5-71.5); PLATELET COUNT (AUTO) 284 K/uL (179-408); RED CELL DISTRIBUTION WIDTH 18.2 % (12.3-17.7); WHITE BLOOD COUNT (AUTO) 12.5 K/uL (3.8-11.8)
[2023-08-26 07:11] LABS: CALCIUM 8.4 mg/dL (8.5-10.1); CARBON DIOXIDE 33 mmol/L (21-32); CHLORIDE 100 mmol/L (98-107); CREATININE 0.6 mg/dL (0.6-1.3); GLUCOSE 75 mg/dL (74-106); POTASSIUM 3.7 mmol/L (3.5-5.1); SODIUM SERUM 137 mmol/L (136-145); UREA NITROGEN, BLOOD 18 mg/dL (7-18)
[2023-08-26 07:13] LABS: DIFFERENTIAL COMMENT 1
[2023-08-26] MEDS ORDERED: DIATR MEGLU/DIATRIZOATE SODIUM 30 ML BOTTLE ONE (15:27)
[2023-08-27] VITALS: TEMP 97.5
[2023-08-27 04:00] VITALS: TEMP 97.2; TEMP 98
[2023-08-27 05:00] VITALS: BP 117/51; TEMP 97.2; O2SAT 95
[2023-08-27 08:01] LABS: CALCIUM 8.7 mg/dL (8.5-10.1); CREATININE 0.6 mg/dL (0.6-1.3); POTASSIUM 3.8 mmol/L (3.5-5.1)
[2023-08-27 11:00] VITALS: BP 118/84; TEMP 97.1; O2SAT 94
[2023-08-27 14:42] LABS: BASOPHILS % (AUTO) 0.4 % (0.0-2.0); DIFFERENTIAL COMMENT 1; EOSINOPHILS # (AUTO) 0.2 K/uL (0.0-0.7); EOSINOPHILS % (AUTO) 1.4 % (0.0-7.0); HEMATOCRIT 45.2 % (31.2-41.9); HEMOGLOBIN 14.8 g/dL (10.9-14.3); MEAN CORPUSCULAR HEMOGLOBIN 27.9 uug (24.7-32.8); MEAN CORPUSCULAR HGB CONC 33 g/dL (32.3-35.6); MEAN CORPUSCULAR VOLUME 84.9 fL (75.5-95.3); MONOCYTES # (AUTO) 0.9 K/uL (0.1-1.30); MONOCYTES % (AUTO) 7.9 % (0.0-11.0); NEUTROPHILS # (AUTO) 7.1 K/uL (1.8-8.9); NEUTROPHILS % (AUTO) 63.3 % (38.5-71.5); PLATELET COUNT (AUTO) 275 K/uL (179-408); RED BLOOD CELL COUNT(AUTO) 5.32 MIL/uL (3.63-4.92); RED CELL DISTRIBUTION WIDTH 18.3 % (12.3-17.7); WHITE BLOOD COUNT (AUTO) 11.2 K/uL (3.8-11.8)
[2023-08-27 16:25] VITALS: BP 104/73; TEMP 97.3; O2SAT 90
[2023-08-27 20:00] VITALS: BP 106/73; TEMP 97.4; O2SAT 93
[2023-08-28 00:49] VITALS: BP 110/75; TEMP 97.7; O2SAT 91
[2023-08-28 04:17] VITALS: BP 118/73; TEMP 97.4; O2SAT 91
[2023-08-28 07:58] VITALS: BP 121/85; TEMP 97.6; O2SAT 94
[2023-08-28 12:00] VITALS: BP 106/75; TEMP 97.6; O2SAT 95
[2023-08-28] MEDS: METOCLOPRAMIDE HCL 10 MG/2 ML VIAL IV SCH (12:08)
[2023-08-28 15:19] VITALS: BP 117/77; TEMP 97.8; O2SAT 92
[2023-08-28 20:20] VITALS: BP 109/76; TEMP 97.7; O2SAT 92
[2023-08-29 05:45] VITALS: BP 108/71; TEMP 97.9; O2SAT 92
[2023-08-29 06:57] LABS: CALCIUM 8.6 mg/dL (8.5-10.1); CARBON DIOXIDE 30 mmol/L (21-32); CHLORIDE 97 mmol/L (98-107); CREATININE 0.5 mg/dL (0.6-1.3); GLUCOSE 83 mg/dL (74-106); MAGNESIUM 1.8 mg/dL (1.8-2.4); PHOSPHOROUS 2.7 mg/dL (2.5-4.9); POTASSIUM 3.6 mmol/L (3.5-5.1); SODIUM SERUM 133 mmol/L (136-145); UREA NITROGEN, BLOOD 13 mg/dL (7-18)
[2023-08-29 06:59] LABS: BASOPHILS % (AUTO) 0.2 % (0.0-2.0); EOSINOPHILS # (AUTO) 0.1 K/uL (0.0-0.7); EOSINOPHILS % (AUTO) 1.3 % (0.0-7.0); HEMOGLOBIN 14.4 g/dL (10.9-14.3); LYMPHOCYTES # (AUTO) 3.3 K/uL (0.8-4.8); LYMPHOCYTES % (AUTO) 28.1 % (20.5-51.5); MEAN CORPUSCULAR HEMOGLOBIN 27.2 uug (24.7-32.8); MEAN CORPUSCULAR HGB CONC 32 g/dL (32.3-35.6); MEAN CORPUSCULAR VOLUME 84.8 fL (75.5-95.3); MONOCYTES # (AUTO) 0.8 K/uL (0.1-1.30); MONOCYTES % (AUTO) 7.3 % (0.0-11.0); NEUTROPHILS # (AUTO) 7.3 K/uL (1.8-8.9); NEUTROPHILS % (AUTO) 63.1 % (38.5-71.5); PLATELET COUNT (AUTO) 333 K/uL (179-408); RED BLOOD CELL COUNT(AUTO) 5.31 MIL/uL (3.63-4.92); WHITE BLOOD COUNT (AUTO) 11.6 K/uL (3.8-11.8)
[2023-08-29 07:03] LABS: DIFFERENTIAL COMMENT 1
[2023-08-29 12:00] VITALS: BP 125/81; TEMP 97.4; O2SAT 92
[2023-08-29 15:04] VITALS: BP 128/82; TEMP 97.4; O2SAT 93
[2023-08-29 20:22] VITALS: BP 157/95; TEMP 97.5; O2SAT 93
[2023-08-30 06:21] VITALS: BP 121/79; TEMP 98.4; O2SAT 90
[2023-08-30 07:31] LABS: CALCIUM 8.7 mg/dL (8.5-10.1); CARBON DIOXIDE 30 mmol/L (21-32); CHLORIDE 99 mmol/L (98-107); CREATININE 0.4 mg/dL (0.6-1.3); GLUCOSE 85 mg/dL (74-106); POTASSIUM 3.7 mmol/L (3.5-5.1); SODIUM SERUM 133 mmol/L (136-145); UREA NITROGEN, BLOOD 13 mg/dL (7-18)
[2023-08-30 07:32] LABS: MAGNESIUM 1.8 mg/dL (1.8-2.4); PHOSPHOROUS 2.5 mg/dL (2.5-4.9)
[2023-08-30 07:47] LABS: BASOPHILS % (AUTO) 0.3 % (0.0-2.0); EOSINOPHILS # (AUTO) 0.1 K/uL (0.0-0.7); EOSINOPHILS % (AUTO) 1.4 % (0.0-7.0); HEMOGLOBIN 14.1 g/dL (10.9-14.3); LYMPHOCYTES # (AUTO) 2.6 K/uL (0.8-4.8); LYMPHOCYTES % (AUTO) 25.4 % (20.5-51.5); MEAN CORPUSCULAR HEMOGLOBIN 27.9 uug (24.7-32.8); MEAN CORPUSCULAR HGB CONC 33 g/dL (32.3-35.6); MONOCYTES # (AUTO) 0.9 K/uL (0.1-1.30); MONOCYTES % (AUTO) 8.8 % (0.0-11.0); NEUTROPHILS # (AUTO) 6.7 K/uL (1.8-8.9); NEUTROPHILS % (AUTO) 64.1 % (38.5-71.5); PLATELET COUNT (AUTO) 332 K/uL (179-408); RED BLOOD CELL COUNT(AUTO) 5.07 MIL/uL (3.63-4.92); RED CELL DISTRIBUTION WIDTH 18.7 % (12.3-17.7); WHITE BLOOD COUNT (AUTO) 10.4 K/uL (3.8-11.8)
[2023-08-30 08:05] LABS: DIFFERENTIAL COMMENT 1
[2023-08-30 11:35] VITALS: BP 133/77; TEMP 97.6; O2SAT 94
[2023-08-30] MEDS ORDERED: METO-295 PO (15:56)
[2023-08-30] MEDS ORDERED: APIX5TAB PO ×2 (15:56)
[2023-08-30] MEDS ORDERED: ONDA4TAB11 PO (15:56)
[2023-08-30 16:09] VITALS: BP 111/77; TEMP 97.7; O2SAT 95
[2023-08-30] MEDS ORDERED: APIXABAN 5 MG TABLET PO SCH (21:00)
[2023-09-07] MEDS ORDERED: APIXABAN 5 MG TABLET PO SCH (09:00)
== END 2023-08-30 18:30 | DRG 299 ==
LOC: ER 15:13 → TELE3 23:59 → MEDSURG3 08-28 10:30
PROVIDERS: ADMIT Internal Medicine; ATTEND Internal Medicine
DX: I82.432 Acute embolism and thrombosis of left popliteal vein (principal); E43 Unspecified severe protein-calorie malnutrition; G93.41 Metabolic encephalopathy; K31.1 Adult hypertrophic pyloric stenosis; C78.6 Secondary malignant neoplasm of retroperitoneum and peritoneum; E87.1 Hypo-osmolality and hyponatremia; C56.2 Malignant neoplasm of left ovary; J91.0 Malignant pleural effusion; N13.2 Hydronephrosis with renal and ureteral calculous obstruction; R64 Cachexia; R65.10 Systemic inflammatory response syndrome (SIRS) of non-infectious origin without acute organ dysfunction; I82.442 Acute embolism and thrombosis of left tibial vein; E88.09 Other disorders of plasma-protein metabolism, not elsewhere classified; Z90.49 Acquired absence of other specified parts of digestive tract; I87.2 Venous insufficiency (chronic) (peripheral); L89.159 Pressure ulcer of sacral region, unspecified stage; E78.5 Hyperlipidemia, unspecified; I89.0 Lymphedema, not elsewhere classified; E04.2 Nontoxic multinodular goiter; E86.1 Hypovolemia; N28.1 Cyst of kidney, acquired; R32 Unspecified urinary incontinence; Z79.899 Other long term (current) drug therapy; Z85.038 Personal history of other malignant neoplasm of large intestine; Z92.21 Personal history of antineoplastic chemotherapy; Z95.828 Presence of other vascular implants and grafts; R79.89 Other specified abnormal findings of blood chemistry
CPT/HCPCS: 36415; 71045; 74018; 83605; 83690; 83735; 84100; 84484; 85025; 85730; 87040; 93005; A6213; G0378; J1644; J1650; J2405; J2765; Q9963